=== PATIENT | male | born 1985 | race Caucasian/White ===

== ENCOUNTER 2024-06-22 11:44 | Emergency (ER) | payer OTHER ==
[2024-06-22] MEDS ORDERED: Ondansetron PF 4 MG/2 ML Vial ONE (12:52)
[2024-06-22] MEDS ORDERED: Morphine 4 MG/ML VIAL ONE (12:52)
[2024-06-22] MEDS ORDERED: methylPREDNISolone Sod Succ/PF 125 MG/2 ML VIAL ONE (12:55)
[2024-06-22] MEDS ORDERED: Ampicillin/Sulbactam 3 GM in Sodium Chloride 0.9% 100 ML IVPB SCH (13:00)
[2024-06-22 17:41] LABS: Hematocrit 41.1 % (38.8-50.0); Mean Corpuscular HGB CONC 34.1 g/dL (32.0-36.0); Mean Corpuscular Hemoglobin 32.3 pg (27.0-33.0); Mean Corpuscular Volume 94.7 fL (81.2-95.1); Mean Platelet Volume 8.7 fL (7.4-10.4); Platelet Count 389 10x3/uL (150-450); RBC Distribution Width 12.1 % (11.5-14.5); Red Blood Cell (RBC) Count 4.34 10x6/uL (4.32-5.72); White Blood Cell (WBC) Count 13.6 10x3/uL (3.5-10.5)
[2024-06-22 17:55] LABS: ALT (SGPT) 59 U/L (8-55); AST (SGOT) 26 U/L (5-34); Albumin 3.8 g/dL (3.5-5.0); Alkaline Phosphatase 112 U/L (40-110); Anion Gap 17 mmol/L (10-20); BUN (Urea Nitrogen) 10 mg/dL (8.9-20.6); Bilirubin, Total 0.5 mg/dL (0.2-1.2); Calc. Creatinine Clearance 0 mL/min (70-130); Calcium 9.7 mg/dL (7.8-10.44); Carbon Dioxide 26 mmol/L (22-29); Chloride 100 mmol/L (98-107); Estimated GFR 105; Globulin 4.1 g/dL (2.4-3.5); Glucose 146 mg/dL (70-105); Potassium 4.2 mmol/L (3.5-5.1); Protein, Total 7.9 g/dL (6.0-8.3); Sodium 139 mmol/L (136-145)
[2024-06-22 18:01] LABS: MDiff Complete? YES
[2024-06-22 18:05] LABS: Band 1 % (5-11); Eosinophils 1 % (0-10); Lymphocytes 5 % (21-51); Neutrophil 93 % (42-75); Platelet Adequacy Comment Appears Adequate; RBC Morph Comment Within Normal Limits
== END 2024-06-22 18:39 | disposition home or self-care (01) ==
LOC: CSHERS 11:44
DX: J01.40 Acute pansinusitis, unspecified (principal); I10 Essential (primary) hypertension; F17.210 Nicotine dependence, cigarettes, uncomplicated
CPT/HCPCS: 36415; 80053; 85025; 96374; 96375; J0295; J2272; J2405; J2919

== ENCOUNTER 2024-06-25 14:56 | Emergency (ER) | payer OTHER ==
[2024-06-25] MEDS ORDERED: Cefepime 1 GM VIAL ONE (15:38)
[2024-06-25 15:43] LABS: #Basophils 0.05 10x3/uL (0.0-0.2); #Eosinophils 0.01 10x3/uL (0.0-0.5); #Monocytes 0.58 10x3/uL (0.0-1.1); #Neutrophils 12.08 10x3/uL (1.5-8.4); %Basophils 0.4 % (0.0-2.0); %Eosinophils 0.1 % (0.0-6.0); %Lymphocytes 10.2 % (18.0-47.0); %Monocytes 4.1 % (0.0-10.0); %Neutrophils 84.4 % (40.0-75.0); Hematocrit 39.8 % (38.8-50.0); Hemoglobin 13.8 g/dL (13.5-17.5); Mean Corpuscular HGB CONC 34.7 g/dL (32.0-36.0); Mean Corpuscular Hemoglobin 32.5 pg (27.0-33.0); Mean Corpuscular Volume 93.9 fL (81.2-95.1); Mean Platelet Volume 8.7 fL (7.4-10.4); Platelet Count 453 10x3/uL (150-450); RBC Distribution Width 12.4 % (11.5-14.5); Red Blood Cell (RBC) Count 4.24 10x6/uL (4.32-5.72); White Blood Cell (WBC) Count 14.3 10x3/uL (3.5-10.5)
[2024-06-25 16:10] LABS: PTT 27.3 sec (22.0-33.0); Prothrombin Time 11.2 sec (9.5-12.1)
[2024-06-25] MEDS ORDERED: Vancomycin 1.5 GRAM/300 ML BAG 1.5 GM in Premix 1 BAG IVPB SCH (16:15)
[2024-06-25 16:16] LABS: ALT (SGPT) 66 U/L (8-55); AST (SGOT) 27 U/L (5-34); Albumin 3.6 g/dL (3.5-5.0); Alkaline Phosphatase 82 U/L (40-110); Anion Gap 16 mmol/L (10-20); BUN (Urea Nitrogen) 18 mg/dL (8.9-20.6); Bilirubin, Total 0.4 mg/dL (0.2-1.2); Calc. Creatinine Clearance 0 mL/min (70-130); Calcium 9.3 mg/dL (7.8-10.44); Carbon Dioxide 25 mmol/L (22-29); Chloride 101 mmol/L (98-107); Estimated GFR 108; Globulin 3.7 g/dL (2.4-3.5); Glucose 204 mg/dL (70-105); Protein, Total 7.3 g/dL (6.0-8.3); Sodium 138 mmol/L (136-145)
[2024-06-25] MEDS ORDERED: Ketorolac Tromethamine 30 MG (1 mL) VIAL ONE (16:43)
[2024-06-25] MEDS ORDERED: Ampicillin/Sulbactam 3 GM in Sodium Chloride 0.9% 100 ML IVPB SCH (18:30)
[2024-06-25] MEDS ORDERED: Dexamethasone 10 MG/ML VIAL ONE (18:31)
[2024-06-25] MEDS ORDERED: Ampicillin 250 MG VIAL ONE (18:31)
[2024-06-25 19:29] LABS: Bilirubin Neg (Negative); Blood, Urine Negative (Negative); Clarity Clear (Clear); Glucose, Urine (Dipstick) Normal (Negative); Ketone, Urine Negative (Negative); Leukocyte Negative (Negative); Nitrite Negative (Negative); Protein, Urine (Dipstick) Negative (Neg-Trace); Specific Gravity, Urine 1.015 (1.005-1.030); Urobilinogen Normal mg/dL (Less than 2)
[2024-06-25] MEDS ORDERED: Morphine 4 MG/ML VIAL ONE (19:40)
[2024-06-25 19:42] LABS: CAUTI Indications for Culture Fever or rigors; RBC/HPF None Seen HPF (0-3); WBC/HPF None Seen HPF (0-3)
[2024-06-25 19:43] LABS: Bacteria/HPF None Seen HPF (None Seen); Squamous Epithelial 0-3 HPF (0-3); Urine Culture Reflex No No
[2024-06-25] MEDS ORDERED: Nicotine 14 MG PATCH TOP SCH (20:00)
== END 2024-06-25 20:16 ==
LOC: CSHERS 14:56
DX: H70.92 Unspecified mastoiditis, left ear (principal); I10 Essential (primary) hypertension; F17.210 Nicotine dependence, cigarettes, uncomplicated
CPT/HCPCS: 36415; 80053; 81001; 83605; 84145; 85025; 85610; 85730; 87040; 93005; 96365; 96366; 96367; 96375; J0290; J0295; J0692; J1100; J1885; J2272; J3370